=== PATIENT | female | born 1960 | race Caucasian/White ===

== ENCOUNTER 2021-10-28 16:23 | Observation (INO) ==
[2021-10-28] MEDS ORDERED: levoFLOXacin 750 MG TABLET PO ONE (16:26)
[2021-10-28] MEDS ORDERED: methylPREDNISolone 125 MG/2 ML VIAL IVP ONE (16:26)
[2021-10-28] MEDS ORDERED: Albuterol 2.5 MG/3 ML NEBULIZER IH ONE (16:29)
[2021-10-28 16:49] LABS: Basophils % 0.2 %; Eosinophils # 0.2 K/mcL (0.0-0.6); Hematocrit 39.4 % (35.3-44.9); Hemoglobin 12.4 g/dL (11.5-15.4); Immature Granulocytes % 0.5 % (0-4); Lymphocytes # 0.9 K/mcL (0.6-4.6); Lymphocytes % 5.2 %; Mean Corpuscular HGB Conc 31.5 g/dL (31.6-35.5); Mean Corpuscular Hemoglobin 25.6 pg (28.0-33.3); Mean Corpuscular Volume 81.2 fL (83.0-100.0); Neutrophils # 15.2 K/mcL (1.6-8.9); Platelet Count 302 K/mcL (140-400); Red Blood Count 4.85 M/mcL (3.82-4.97); Red Cell Distribution Width 15.6 % (11.5-14.5); Segmented Neutrophils % 87.1 %; White Blood Count 17.5 K/mcL (4.3-11.1)
[2021-10-28 16:51] LABS: Monocytes # 1.1 K/mcL (0.0-1.3)
[2021-10-28 16:57] LABS: INR 1.5; Prothrombin Time 16.5 Seconds (9.4-12.1)
[2021-10-28 17:00] LABS: Activated Partial Thrombo Time 39.7 Seconds (26.0-36.0)
[2021-10-28 17:04] LABS: BUN/Creatinine Ratio 11 (6-26); Blood Urea Nitrogen 11 mg/dL (8-23); Calcium 8.3 mg/dL (8.6-10.3); Carbon Dioxide 26 mEq/L (23-29); Chloride 96 mEq/L (98-107); Glucose 97 mg/dL (70-105); Osmolality,Calculated 277 (280-300); Potassium 3.6 mEq/L (3.5-5.1); Sodium 134 mEq/L (136-145); eGFR For African Americans > 60 (> 60); eGFR For Non-African Americans 57 (> 60)
[2021-10-28 17:08] LABS: Troponin I < 0.03 ng/mL (< 0.04)
[2021-10-28] MEDS ORDERED: Ondansetron 4 MG/2 ML VIAL IVP ONE (17:24)
[2021-10-28] MEDS ORDERED: Iopamidol - 370 500 ML MLS IVP ONE (18:19)
[2021-10-28] MEDS ORDERED: 0.9 % Sodium Chloride 1,000 ML IVC ONE (19:20)
[2021-10-28] MEDS ORDERED: 0.9 % Sodium Chloride 1,000 ML IVC SCH (19:30)
[2021-10-28] MEDS ORDERED: Acetaminophen 325 MG TABLET PO PRN (23:03)
[2021-10-28] MEDS ORDERED: Ondansetron ODT 4 MG TAB.RAPDIS SL PRN (23:03)
[2021-10-28] MEDS ORDERED: Naloxone 0.4 MG/ML INJ IVP PRN (23:03)
[2021-10-28] MEDS ORDERED: Albuterol 2.5 MG/3 ML NEBULIZER IH PRN (23:03)
[2021-10-28] MEDS ORDERED: Ibuprofen 400 MG TABLET PO PRN (23:03)
[2021-10-28] MEDS ORDERED: Melatonin 3 MG TABLET PO PRN (23:03)
[2021-10-28] MEDS ORDERED: MOM Conc 10 ML UD.LIQ PO PRN (23:03)
[2021-10-28] MEDS ORDERED: Mag Hydrox/Al Hydrox/Simeth 30 ML UDC PO PRN (23:03)
[2021-10-28] MEDS: 0.9 % Sodium Chloride 1,000 ML IVC SCH (23:23)
[2021-10-28] MEDS: Ipratropium/Albuterol Neb 3 ML IH SCH (23:35)
[2021-10-29] MEDS: MethylPREDNISolone 40 MG/ML VIAL IVP SCH ×3 (00:10→18:07)
[2021-10-29] MEDS: Ipratropium/Albuterol Neb 3 ML IH SCH ×4 (04:32→21:03)
[2021-10-29] MEDS: 0.9 % Sodium Chloride 1,000 ML IVC SCH (05:52)
[2021-10-29] MEDS ORDERED: levoFLOXacin 750 MG/150 ML 750 MG/150 ML BAG IVPB SCH (09:00)
[2021-10-29] MEDS ORDERED: Ondansetron ODT 4 MG TAB.RAPDIS SL PRN (09:19)
[2021-10-29] MEDS: *HR* Enoxaparin 40 MG/0.4 ML SYRINGE SQ SCH (09:34)
[2021-10-29 10:24] LABS: Basophils % 0.1 %; Hematocrit 33.8 % (35.3-44.9); Hemoglobin 10.3 g/dL (11.5-15.4); Immature Granulocytes % 0.7 % (0-4); Lymphocytes # 0.3 K/mcL (0.6-4.6); Lymphocytes % 3.7 %; Mean Corpuscular HGB Conc 30.5 g/dL (31.6-35.5); Mean Corpuscular Hemoglobin 25.4 pg (28.0-33.3); Mean Corpuscular Volume 83.3 fL (83.0-100.0); Monocytes # 0.2 K/mcL (0.0-1.3); Monocytes % 2.6 %; Neutrophils # 6.3 K/mcL (1.6-8.9); Platelet Count 179 K/mcL (140-400); Red Blood Count 4.06 M/mcL (3.82-4.97); Red Cell Distribution Width 15.7 % (11.5-14.5); Segmented Neutrophils % 92.9 %; White Blood Count 6.8 K/mcL (4.3-11.1)
[2021-10-29 10:38] LABS: BUN/Creatinine Ratio 14 (6-26); Blood Urea Nitrogen 11 mg/dL (8-23); Calcium 7.4 mg/dL (8.6-10.3); Carbon Dioxide 23 mEq/L (23-29); Chloride 102 mEq/L (98-107); Glucose 254 mg/dL (70-105); Osmolality,Calculated 288 (280-300); Potassium 3.4 mEq/L (3.5-5.1); Sodium 135 mEq/L (136-145); eGFR For African Americans > 60 (> 60); eGFR For Non-African Americans > 60 (> 60)
[2021-10-29] MEDS ORDERED: ALPRAZolam 0.25 MG TABLET PO PRN (13:25)
[2021-10-29] MEDS: Nystatin POWDER 30 GM BOTTLE TP SCH (20:35)
[2021-10-29] MEDS: Budesonide/Formoterol 160/4.5 1 PUFF INH IH SCH (21:10)
[2021-10-29 21:55] LABS: Adenovirus Not Detected (Not Detect); Coronavirus 229E Not Detected (Not Detect); Coronavirus HKU1 Not Detected (Not Detect); Coronavirus NL63 Not Detected (Not Detect); Coronavirus OC43 Not Detected (Not Detect)
[2021-10-29 21:56] LABS: Bordetella Pertussis Not Detected (Not Detect); Chlamydophila pneumoniae Not Detected (Not Detect); Human Metapneumovirus Not Detected (Not Detect); Human Rhinovirus/Enterovirus Not Detected (Not Detect); Influenza A Subtype 2009 H1 Not Detected (Not Detect); Influenza B Not Detected (Not Detect); Mycoplasma pneumoniae Not Detected (Not Detect); Parainfluenza Virus 1 Not Detected (Not Detect); Parainfluenza Virus 2 Not Detected (Not Detect); Parainfluenza Virus 3 Not Detected (Not Detect); Parainfluenza Virus 4 Not Detected (Not Detect); Respiratory Syncytial Virus Not Detected (Not Detect); SARS-CoV-2 DETECTED (Not Detect)
[2021-10-30 01:39] VITALS: RESP 18
[2021-10-30] MEDS: Ipratropium/Albuterol Neb 3 ML IH SCH ×4 (04:58→22:32)
[2021-10-30] MEDS: *HR* Enoxaparin 40 MG/0.4 ML SYRINGE SQ SCH (06:28)
[2021-10-30] MEDS: MethylPREDNISolone 40 MG/ML VIAL IVP SCH ×2 (06:28→17:57)
[2021-10-30 08:04] LABS: Basophils % 0.1 %; Hemoglobin 9.9 g/dL (11.5-15.4); Immature Granulocytes % 0.5 % (0-4); Lymphocytes # 0.4 K/mcL (0.6-4.6); Lymphocytes % 3.2 %; Mean Corpuscular HGB Conc 30.9 g/dL (31.6-35.5); Mean Corpuscular Hemoglobin 25.4 pg (28.0-33.3); Mean Corpuscular Volume 82.3 fL (83.0-100.0); Monocytes # 0.6 K/mcL (0.0-1.3); Monocytes % 4.9 %; Neutrophils # 10.4 K/mcL (1.6-8.9); Platelet Count 244 K/mcL (140-400); Red Blood Count 3.89 M/mcL (3.82-4.97); Red Cell Distribution Width 15.8 % (11.5-14.5); Segmented Neutrophils % 91.3 %; White Blood Count 11.4 K/mcL (4.3-11.1)
[2021-10-30 08:21] LABS: BUN/Creatinine Ratio 12 (6-26); Blood Urea Nitrogen 8 mg/dL (8-23); Calcium 7.8 mg/dL (8.6-10.3); Carbon Dioxide 26 mEq/L (23-29); Chloride 107 mEq/L (98-107); Glucose 119 mg/dL (70-105); Osmolality,Calculated 293 (280-300); Potassium 3.8 mEq/L (3.5-5.1); Sodium 142 mEq/L (136-145); eGFR For African Americans > 60 (> 60); eGFR For Non-African Americans > 60 (> 60)
[2021-10-30] MEDS ORDERED: LEFLUNOMIDE 20 MG PO SCH (09:00)
[2021-10-30] MEDS: Nystatin POWDER 30 GM BOTTLE TP SCH (09:21)
[2021-10-30] MEDS: Budesonide/Formoterol 160/4.5 1 PUFF INH IH SCH (09:24)
[2021-10-30] MEDS ORDERED: levoFLOXacin 750 MG TABLET PO ONE (12:20)
[2021-10-30 13:50] VITALS: BP 103/62; PULSE 76; TEMP 97.7
[2021-10-30 16:13] VITALS: O2SAT 97
== END 2021-10-30 19:50 | disposition home or self-care (01) ==
LOC: INPPIK 16:23 → EMEROOPIK 16:23 → INPPIK 21:35
PROVIDERS: ADMIT Internal Medicine; ATTEND Internal Medicine